=== PATIENT | female | born 1945 | race Two or more races ===

== ENCOUNTER → 2020-09-21 | Outpatient (CLI) | payer MEDICARE ==
[~2020-09-21] MED LIST: BUPROPION HCL75 MG PO; PREMARIN0.625 MG PO; PROGESTERONE100 MG PO
== END ==
LOC: RAD 10:34
PROVIDERS: ATTEND Internal Medicine
DX: M25.472 Effusion, left ankle (principal); M25.471 Effusion, right ankle; R60.9 Edema, unspecified
CPT/HCPCS: 93970

== ENCOUNTER 2023-12-09 10:39 | Emergency (ER) | payer MEDICARE ==
[~2023-12-09] VITALS: Ht 154.9 cm; Wt 77.1 kg
[2023-12-09 10:40] VITALS: TEMP 97
[2023-12-09] MEDS: MECLIZINE HCL 12.5 MG TAB PO STA (11:37)
[2023-12-09 11:58] LABS: BASOPHILS % 0.6 % (0.0-1.0); EOSINOPHILS # (AUTO) 0.1 (0.0-0.4); HEMATOCRIT 44.1 % (34.2-44.1); LYMPHOCYTES # (AUTO) 1.7 (1.0-3.2); LYMPHOCYTES % 23.4 % (18.0-39.1); MEAN CORPUSCULAR HEMOGLOBIN 31.9 pg (28-32); MEAN CORPUSCULAR HGB CONC 31.7 g/dL (31-35); MEAN CORPUSCULAR VOLUME 100.5 fL (81-99); MONOCYTES # (AUTO) 0.7 (0.2-0.8); MONOCYTES % 9.4 % (4.4-11.3); NEUTROPHILS # (AUTO) 4.7 (2.1-6.9); NEUTROPHILS % 65.3 % (38.7-80.0); PLATELET COUNT 191 x10e3/uL (140-360); RED BLOOD COUNT 4.39 x10e6/uL (3.6-5.1); WHITE BLOOD COUNT 7.25 x10e3/uL (4.8-10.8)
[2023-12-09 12:23] LABS: ALBUMIN 4.3 g/dL (3.5-5.0); ALBUMIN/GLOBULIN RATIO 1.3 (0.8-2.0); BILIRUBIN,TOTAL 0.5 mg/dL (0.2-1.2); CALCIUM 9.3 mg/dL (8.4-10.2); CREATININE, SERUM 0.76 mg/dL (0.57-1.11); TOTAL PROTEIN 7.7 g/dL (6.5-8.1)
[2023-12-09 12:42] VITALS: PULSE 76; RESP 16
[2023-12-09] MEDS ORDERED: MECLIZINE HCL12.5 MG PO (13:02)
[2023-12-09 13:22] VITALS: BP 154/78; PULSE 77; RESP 16; O2SAT 100
== END 2023-12-09 13:00 | disposition home or self-care (01) ==
LOC: ER 10:42
DX: H92.03 Otalgia, bilateral (principal); R42 Dizziness and giddiness; M19.09 Primary osteoarthritis, other specified site
CPT/HCPCS: 36415; 70450; 80053; 84484; 85025; 93005; 99284; J8597